=== PATIENT | female | born 1990 | race African-American/Black ===

== ENCOUNTER 2016-08-25 21:36 | Emergency (ER) | payer SELFPAY ==
[~2016-08-25] VITALS: Ht 165.1 cm; Wt 57.0 kg
[2016-08-25] MEDS ORDERED: LORAZEPAM 2MG/ML CPJ IM ONE (23:15)
[2016-08-25 23:29] LABS: *BARBITURATES SCREEN URINE NEGATIVE (NEGATIVE); *BENZODIAZEPINES SCREEN URINE NEGATIVE (NEGATIVE); *COCAINE SCREEN URINE NEGATIVE (NEGATIVE); CANNABINOID URINE SCREEN NEGATIVE (NEGATIVE); METHADONE URINE SCREEN NEGATIVE (NEGATIVE); OPIATES URINE SCREEN NEGATIVE (NEGATIVE); PHENCYCLIDINE URINE SCREEN NEGATIVE (NEGATIVE)
[2016-08-25 23:35] LABS: *AMPHETAMINES SCREEN URINE PRESUMTIVE POSITIVE (NEGATIVE); ECSTASY MDMA SCREEN URINE CONF.TEST INDICATED (NEGATIVE)
[2016-08-26 00:15] VITALS: BP 136/83
== END 2016-08-26 00:45 | disposition home or self-care (01) ==
LOC: ER 21:38
DX: F15.10 Other stimulant abuse, uncomplicated (principal); F17.200 Nicotine dependence, unspecified, uncomplicated; F41.9 Anxiety disorder, unspecified
CPT/HCPCS: 80305; 81025; 93005; 99285